=== PATIENT | male | born 1980 | race Caucasian/White ===

== ENCOUNTER 2016-07-16 09:48 | Emergency (ER) | payer OTHER ==
[~2016-07-16] VITALS: Ht 165.1 cm; Wt 63.5 kg
[~2016-07-16 09:48] MED LIST: ADVIL200 MG PO; CLEOCIN HCL300 M1 PO; CYCLOBENZAPRINE10 M1 PO; FLEXERIL10 MG PO; IBUPROFEN800 M1 PO; PERCOCET 325 MG1 TA2 PO; TYLENOL XSTR500 MG PO; VICODIN 5-3001 EACH PO
[2016-07-16 09:58] VITALS: BP 128/92
--- NOTE | 2016-07-16 10:15 | ED NECK/BACK PAIN COMPLAINT ---
History of Present Illness General Chief Complaint: Low Back Pain/Injury Stated Complaint: NECK/BACK PAIN Source: patient, family (MOTHER), old records Exam Limitations: no limitations Vital Signs & Intake/Output Vital Signs & Intake/Output Vital Signs Date Time Temp Pulse Resp B/P Pulse O2 O2 Flow FiO2 Ox Delivery Rate 07/16 0958 97.7 120 16 128/92 100 Room Air Allergies Coded Allergies: No Known Allergies (09/16/15) Reconcile Medications Ibuprofen 600 MG TABLET 1 TAB PO TID PRN pain with food Methocarbamol (Robaxin) 500 MG TABLET 1 TAB PO TID PRN pain Tramadol HCl 50 MG TABLET 1 TAB PO BIDP PRN breakthrough pain Triage Note: PT SATTES HE IS HAVING NECK AND BACK PAIN FROM SHOVELING THE SNOW YESTERDAY. PT WITH HX OF CHRONIC BACK PROBLEMS. Triage Nurses Notes Reviewed? yes Onset: Abrupt Duration: day(s): (2), intermittent, waxing and waning Timing: recent history Quality/Severity: moderate Location: paraspinous muscles Radiation: none Context: lifting Method of Injury: SHOVELING Loss of Consciousness: no loss of consciousness Modifying Factors: movement, rest Associated Symptoms: DENIES HPI: 36-year-old male with history of chronic neck and back pain presents with his mother for evaluation complaining of exacerbation of his chronic pain that began yesterday while shoveling snow. He denies any known injury trauma or fall. The pain is worse with palpation and change in position better at rest. He has not taken anything for his symptoms. The patient has been seen numerous times in the past for similar episodes. He denies any abdominal pain, urinary or bowel incontinence no fever no chills. Patient denies any nausea vomiting or diarrhea. Pain is aching constant waxing and waning nonradiating no numbness or tingling in his extremity. Past History Travel History Traveled to [place] past 21 day No Medical History Any Pertinent Medical History? see below for history Neurological: NONE EENT: NONE Cardiovascular: NONE Respiratory: NONE Gastrointestinal: NONE Hepatic: NONE Renal: NONE Musculoskeletal: CHRONIC BACK ISSUES Psychiatric: NONE Endocrine: NONE Surgical History Surgical History: non-contributory Psychosocial History What is your primary language Niuean Tobacco Use: Current Daily Use Daily Tobacco Use Amount/Type: => 5 Cigarettes daily ETOH Use: denies use Illicit Drug Use: denies illicit drug use Family History Hx Contributory? No Review of Systems Review of Systems Constitutional: Reports: see HPI. All Other Systems: Reviewed and Negative Comments Review of systems: See HPI, All other systems negative. Constitutional, no chills no fever, no malaise HEENT: no sore throat no congestion, no ear pain Cardiovascular: No chest pain , no palpitation Skin, no rashes, no change in skin Respiratory: No dyspnea no cough no sputum GI: No nausea no vomiting, no diarrhea : No dysuria Muscle skeletal: No joint pain, no joint swelling, back pain, neck pain, Neurologic: No numbness no confusion, no headache Psych: No stress Heme/endocrine: No bruising no bleeding Immunology: No lymphadenopathy Physical Exam Physical Exam General Appearance: well developed/nourished, alert, awake Neck: normal inspection Comments: Well-developed well-nourished patient in no apparent distress. HEENT: Atraumatic, extraocular motion intact Neck: Supple, FROM, no midline tenderness bilateral paracervical muscle tenderness to palpation Back: FROM, bilateral paralumbar muscle tenderness to palpation no midline tenderness no ecchymosis or signs of trauma Cardiovascular: Regular rate and rhythms no murmurs rubs or gallops, Respiratory: Chest nontender.There were no bony deformities, no asymmetry. No respiratory distress. Patient speaking in full complete sentences. Breath sounds clear to auscultation bilaterally: NO W/R/R Extremities: full range of motion, 5 out of 5 strength in bilateral upper and lower extremities Neuro: Alert and oriented x3 Skin: Warm & dry;No appreciable rash on exposed skin Psych: Mood affect normal, normal memory normal judgment. Progress Differential Diagnosis: herniated disc, myofascial strain, muscle strain Plan of Care: Patient is provided with primary care referral. Patient clinically looks well. Patient has no evidence of radiculopathy. No urinary bowel dysfunction. No numbness in the genital area. Strength intact. Gross sensation intact. Patient resting comfortably and in no apparent distress. Pain is worse with range of motion. Pain is reproducible IN back with no bruising or ecchymosis noted. . Patient is to follow-up with primary care doctor. May need MRI of the lower back at some point time. No concerns for cauda equina at this point time. I considered this diagnosis but patient does not have any symptoms consistent with cauda equina. Patient has no secondary causes of back pain. No cardiac, pulmonary, or abdominal complaints. No abdominal pain on exam. Cardiac pulmonary exam within normal limits. No rashes, afebrile, denies recent weight loss, dizziness, lightheadedness they feel comfortable plan prescription for tramadol, I proven and Robaxin was provided cleared for discharge Departure Departure Time of Disposition: 1020 Disposition: HOME OR SELF CARE Condition: Stable Clinical Impression Primary Impression: Cervical strain Secondary Impressions: Lumbar strain Referrals: PATIENT HAS NO PRIMARY CARE DR (PCP/Family) MARIE TOWNSEND,[facility] Additional Instructions: Ultram for breakthrough pain use caution as this is a narcotic and highly addictive. No driving or drinking alcohol while taking. Robaxin as directed. Ibuprofen 600 mg every 8 hours. Follow-up with primary care physician Dr. barr Departure Forms: Customer Survey General Discharge Information Prescriptions: Current Visit Scripts Tramadol HCl 1 TAB PO BIDP PRN breakthrough pain #10 TAB Methocarbamol (Robaxin) 1 TAB PO TID PRN pain #15 TAB Ibuprofen 1 TAB PO TID PRN pain #30 TAB with food
[2016-07-16] MEDS ORDERED: TRAMADOL HCL50 M1 PO (10:24)
[2016-07-16] MEDS ORDERED: ROBAXIN500 M1 PO (10:24)
[2016-07-16] MEDS ORDERED: IBUPROFEN600 M1 PO (10:24)
== END 2016-07-16 10:36 ==
LOC: ERH 09:48
DX: S16.1XXA Strain of muscle, fascia and tendon at neck level, initial encounter (principal); S39.012A Strain of muscle, fascia and tendon of lower back, initial encounter; X50.0XXA Overexertion from strenuous movement or load, initial encounter; Y93.H1 Activity, digging, shoveling and raking; Y92.9 Unspecified place or not applicable

== ENCOUNTER 2016-08-24 12:20 | Emergency (ER) | payer OTHER ==
[~2016-08-24] VITALS: Ht 165.1 cm; Wt 57.6 kg
[~2016-08-24 12:20] MED LIST changes: +IBUPROFEN600 M1 PO; +ROBAXIN500 M1 PO; +TRAMADOL HCL50 M1 PO
[2016-08-24 12:23] VITALS: BP 172/88
--- NOTE | 2016-08-24 13:40 | ED NECK/BACK PAIN COMPLAINT ---
History of Present Illness General Chief Complaint: Lower Extremity Problems Stated Complaint: PT HAS PAIN IN THE BACK AND NECK Source: patient, old records Exam Limitations: no limitations Vital Signs & Intake/Output Vital Signs & Intake/Output Vital Signs Date Time Temp Pulse Resp B/P B/P Pulse O2 O2 Flow FiO2 Mean Ox Delivery Rate 08/24 1223 98.3 125 20 172/88 99 Room Air Allergies Coded Allergies: No Known Allergies (09/16/15) Reconcile Medications Ibuprofen 600 MG TABLET 1 TAB PO TID PRN pain with food Methocarbamol (Robaxin) 500 MG TABLET 1 TAB PO TID PRN pain Tramadol HCl 50 MG TABLET 1 TAB PO BIDP PRN breakthrough pain Triage Note: PT TO ED C/O CHRONIC BACK AND NECK PAIN. HAS TAKEN OTC MEDS WITH NO RELIEF. Triage Nurses Notes Reviewed? yes Onset: last month Duration: week(s):, constant, continues in ED Timing: recent history Quality/Severity: moderate, dullness Location: lumbar spine, paraspinous muscles Radiation: none Context: lifting, turning/bending Method of Injury: twisted Loss of Consciousness: no loss of consciousness Modifying Factors: immobilization, jarring, movement Associated Symptoms: lower back pain, muscle spasm HPI: 1 month prior to admission after shoveling snow patient complains of recurrent low back pain worse with turning bending described as moderate to severe achy nonradiating. He seen his PMD prescribed tramadol physical therapy. He reports being referred to pain management. He denies fever chills nausea vomiting diarrhea abdominal pain chest pain shortness breath headache dysuria rash bleeding change in motor sensory function change in bowel bladder habit. Past History Travel History Traveled to [place] past 21 day No Medical History Any Pertinent Medical History? see below for history Neurological: NONE EENT: NONE Cardiovascular: NONE Respiratory: NONE Gastrointestinal: NONE Hepatic: NONE Renal: NONE Musculoskeletal: CHRONIC BACK ISSUES Psychiatric: NONE Endocrine: NONE Surgical History Surgical History: non-contributory Psychosocial History What is your primary language Polish Tobacco Use: Current Daily Use Daily Tobacco Use Amount/Type: => 5 Cigarettes daily ETOH Use: denies use Illicit Drug Use: denies illicit drug use Family History Hx Contributory? No Review of Systems Review of Systems Constitutional: Reports: no symptoms. Eyes: Reports: no symptoms. Ears, Nose, Throat, Mouth: Reports: no symptoms. Respiratory: Reports: no symptoms. Cardiovascular: Reports: no symptoms. Gastrointestinal/Abdominal: Reports: no symptoms. Musculoskeletal: Reports: see HPI, back pain, muscle pain, muscle stiffness. Skin: Reports: no symptoms. Neurological/Psychological: Reports: no symptoms. All Other Systems: Reviewed and Negative Physical Exam Physical Exam General Appearance: well developed/nourished, alert, awake, anxious, mild distress Head: atraumatic, normal appearance Eyes: Bilateral: normal appearance, PERRL, EOMI. Ears, Nose, Throat, Mouth: hearing grossly normal Neck: normal inspection, supple, full range of motion, normal alignment Respiratory: normal breath sounds, chest non-tender, no respiratory distress Cardiovascular: regular rate/rhythm, normal peripheral pulses, norml femoral pulses equa Peripheral Pulses: 4+ carotid (R), 4+ carotid (L) Gastrointestinal: normal bowel sounds, soft, non-tender, no organomegaly Back: normal inspection, decreased range of motion, muscle spasm, no vertebral tenderness Extremities: non-tender, normal range of motion Straight Leg Raising: Right: Negative. Left: Negative. Sensory: Medial Le: L4R. Top of Foot: 2: L5R, L5L. Sole of Foot: 2: SIR, DANIELLE. Motor: Deficit L4 Right: No Deficit L4 Left: No Deficit L5 Right: No Deficit L5 Left: No Deficit S1 Right: No Deficit S1 Right: No Walk on Heels: 3: L4 Left, L4 Right. Ext. Big Toe: 3: L5 Left, L5 Right. Walk on Toes: 3: S1 Left, S1 Right. DTR: Deficit L4 Left: No Deficit L4 Right: No Deficit S1 Left: No Deficit S1 Right: No Patellar: 3: L4 Right, L4 Left. Neurologic/Psych: awake, alert, oriented x 3, normal mood/affect Skin: intact, normal color, warm/dry Progress Differential Diagnosis: herniated disc, myofascial strain, T/L spine injury Plan of Care: analgesia, muscle relaxant Departure Departure Time of Disposition: 1343 Disposition: HOME OR SELF CARE Condition: Stable Clinical Impression Primary Impression: Acute exacerbation of chronic low back pain Referrals: THAIS TOWNSEND,WAYNE Nolasco Additional Instructions: Follow up with physical therapy and pain management as prescribed Departure Forms: Customer Survey General Discharge Information Prescriptions: Current Visit Scripts Ibuprofen 1 TAB PO Q6PRN PRN pain #50 TAB with food Baclofen 1 TAB PO TIDPRN PRN muscle spasm/strain #30 TAB Oxycodone HCl/Acetaminophen (Percocet 5-325 MG Tablet) 1 TAB PO Q6P PRN severe pain #10 TAB
[2016-08-24] MEDS ORDERED: BACLOFEN10 M1 PO (13:46)
[2016-08-24] MEDS ORDERED: PERCOCET 5-3251 EACH PO (13:46)
[2016-08-24] MEDS ORDERED: IBUPROFEN600 M1 PO (13:46)
== END 2016-08-24 13:59 ==
LOC: ERH 12:20
DX: G89.29 Other chronic pain (principal); M54.5 Low back pain

== ENCOUNTER 2016-09-07 14:59 | Emergency (ER) | payer OTHER ==
[~2016-09-07] VITALS: Ht 165.1 cm; Wt 59.0 kg
[~2016-09-07 14:59] MED LIST changes: +BACLOFEN10 M1 PO; +PERCOCET 5-3251 EACH PO
[2016-09-07 15:03] VITALS: BP 144/89
[2016-09-07] MEDS ORDERED: PERCOCET 5-3251 EACH PO (15:15)
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
== END 2016-09-07 15:43 ==
LOC: ERH 14:59
DX: M54.5 Low back pain (principal); M54.2 Cervicalgia

== ENCOUNTER 2016-09-19 14:59 | Emergency (ER) | payer OTHER ==
[~2016-09-19] VITALS: Ht 165.1 cm; Wt 59.0 kg
[2016-09-19 15:21] VITALS: BP 145/89
[2016-09-19] MEDS ORDERED: PERCOCET 5-3251 EACH PO (18:05)
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
== END 2016-09-19 18:30 ==
LOC: ERH 14:59
DX: M54.5 Low back pain (principal)

== ENCOUNTER 2017-05-17 14:29 | Emergency (ER) | payer OTHER ==
[~2017-05-17] VITALS: Ht 165.1 cm; Wt 66.7 kg
--- NOTE | 2017-05-17 17:47 | ED NECK/BACK PAIN COMPLAINT ---
History of Present Illness General Chief Complaint: Neck/Upper Back Pain/Injury Stated Complaint: BACK PAIN, CHRONIC Source: patient Exam Limitations: no limitations Vital Signs & Intake/Output Vital Signs & Intake/Output Vital Signs Date Time Temp Pulse Resp B/P B/P Pulse O2 O2 Flow FiO2 Mean Ox Delivery Rate 05/17 1433 98.2 105 18 162/88 98 Room Air Allergies Coded Allergies: No Known Allergies (09/16/15) Reconcile Medications Cyclobenzaprine HCl 10 MG TABLET 1 TAB PO QPM PRN MUSCLE STAIN Cyclobenzaprine HCl 10 MG TABLET 1 TAB PO QPM PRN muscle relaxor Meloxicam (Mobic) 15 MG TABLET 1 TAB PO DAILY PRN pain Tramadol HCl 50 MG TABLET 1 TAB PO Q8H PRN PAIN (Reported) Triage Note: 37 [facility]/O CHRONIC BACK/NECK/SHOULER PAIN FOR "EVER" PER PT. STATES HE HAS SEEN [facility] BUT THEY CANNOT FIND ANYTHING WRONG. Triage Nurses Notes Reviewed? 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 Patient states that he has not taken any medications for symptoms. Denies any extremity paresthesias or weakness or pain Past History Travel History Traveled to [place] past 21 day No Medical History Any Pertinent Medical History? see below for history Neurological: NONE EENT: NONE Cardiovascular: NONE Respiratory: NONE Gastrointestinal: NONE Hepatic: NONE Renal: NONE Musculoskeletal: CHRONIC BACK ISSUES Psychiatric: NONE Endocrine: NONE Surgical History Surgical History: non-contributory Psychosocial History What is your primary language Cuban Tobacco Use: Never used Family History Hx Contributory? No Review of Systems Review of Systems Constitutional: Reports: no symptoms. Eyes: Reports: no symptoms. Ears, Nose, Throat, Mouth: Reports: no symptoms. Respiratory: Reports: no symptoms. Cardiovascular: Reports: no symptoms. Gastrointestinal/Abdominal: Reports: no symptoms. Musculoskeletal: Reports: see HPI, back pain, muscle pain, muscle stiffness, neck pain. Skin: Reports: no symptoms. Neurological/Psychological: Reports: no symptoms. All Other Systems: Reviewed and Negative Physical Exam Physical Exam General Appearance: no apparent distress, alert, comfortable Head: atraumatic Eyes: Bilateral: normal appearance, PERRL. Ears, Nose, Throat, Mouth: hearing grossly normal Neck: normal inspection, stiff neck, tender lateral, no midline tenderness Respiratory: no respiratory distress Peripheral Pulses: 2+ radial (R), 2+ radial (L) Back: normal inspection, decreased range of motion, no vertebral tenderness Extremities: non-tender, normal range of motion Comments: Bilateral upper extremity and lower extremity myotomes and dermatomes DTRs intact Core Measures CVA/TIA Diagnosis: No Progress Differential Diagnosis: AAA, aortic dissection, C spine injury, carotid dissection, cauda equina syn, herniated disc, myofascial strain, pyelo/UTI, sciatica, spinal cord inj, thoracic outlet syn, T/L spine injury, ureterolithiasis Plan of Care: No concerns of discitis or spinal abscess at this time when discussing with patient on the etiology of him being discharged from pain management he states that he took Percocet that he was not supposed to which he was recently discharged \\ at this time I do not feel comfortable prescribing patient narcotics. Patient was strongly advised to follow up with a aircraft painter apprentice Departure Departure Disposition: HOME OR SELF CARE Condition: Stable Clinical Impression Primary Impression: Neck pain Referrals: Cindy TOWNSEND,Dary Nolasco (PCP/Family) Additional Instructions: As discussed in icing the area directly 20 minutes every 2 hours, begin the prescription meloxicam and cyclobenzaprine for muscle relaxation Follow-up and establish a aircraft painter apprentice Symptoms worsen return to emergency room Prescriptions waiting at [facility] Departure Forms: Customer Survey General Discharge Information Prescriptions: Current Visit Scripts Meloxicam (Mobic) 1 TAB PO DAILY PRN pain #20 TAB Cyclobenzaprine HCl 1 TAB PO QPM PRN muscle relaxor #5 TAB
[2017-05-17] MEDS ORDERED: CYCLOBENZAPRINE10 M1 PO (17:51)
[2017-05-17] MEDS ORDERED: MOBIC15 M1 PO (17:51)
[2017-05-17 18:13] VITALS: BP 155/84
== END 2017-05-17 18:13 ==
LOC: ERH 14:29
DX: M54.2 Cervicalgia (principal); W21.05XA Struck by basketball, initial encounter; Y93.9 Activity, unspecified; Y92.9 Unspecified place or not applicable